=== PATIENT | female | born 2000 ===

== ENCOUNTER 2019-04-22 15:04 | Inpatient (IN) | payer OTHER ==
[~2019-04-22] VITALS: Ht 154.9 cm; Wt 55.3 kg
[2019-04-22] MEDS ORDERED: PRENATABS RX T1 EACH PO (15:43)
== END 2019-04-24 16:49 | disposition home or self-care (01) | DRG 807 ==
LOC: LDR 15:04 → OB/GYN 21:44
PROVIDERS: ADMIT Specialist
PROC: 10E0XZZ Delivery of Products of Conception, External Approach (ICD-10-PCS; principal; 2019-04-22)
PROC: 10907ZC Drainage of Amniotic Fluid, Therapeutic from Products of Conception, Via Natural or Artificial Opening (ICD-10-PCS; 2019-04-22)
PROC: 0W8NXZZ Division of Female Perineum, External Approach (ICD-10-PCS; 2019-04-22)
PROC: 3E033VJ Introduction of Other Hormone into Peripheral Vein, Percutaneous Approach (ICD-10-PCS; 2019-04-22)
PROC: 4A1HXCZ Monitoring of Products of Conception, Cardiac Rate, External Approach (ICD-10-PCS; 2019-04-22)
DX: O80 Encounter for full-term uncomplicated delivery (principal); Z37.0 Single live birth; Z3A.39 39 weeks gestation of pregnancy